=== PATIENT | female | born 1965 | race Two or more races ===

== ENCOUNTER 2016-10-16 18:11 | Emergency (ER) | payer MEDICAID ==
[~2016-10-16] VITALS: Ht 165.1 cm; Wt 101.6 kg
[2016-10-16 18:26] VITALS: BP 138/64
[2016-10-16] MEDS ORDERED: IBUPROFEN 600 MG TAB PO ONE (22:00)
== END 2016-10-16 22:16 | disposition home or self-care (01) ==
LOC: ER 18:16
DX: S63.601A Unspecified sprain of right thumb, initial encounter (principal); M25.531 Pain in right wrist; E11.9 Type 2 diabetes mellitus without complications; E78.5 Hyperlipidemia, unspecified; I10 Essential (primary) hypertension; X58.XXXA Exposure to other specified factors, initial encounter; Y93.89 Activity, other specified; Y99.8 Other external cause status; Y92.89 Other specified places as the place of occurrence of the external cause
CPT/HCPCS: 73130; 82962

== ENCOUNTER 2017-02-09 19:35 | Emergency (ER) | payer MEDICAID, OTHER ==
[~2017-02-09] VITALS: Ht 154.9 cm; Wt 67.1 kg
[~2017-02-09 19:35] MED LIST: BENA20TA14 PO; FURO40TA4 PO; GABA-494 PO; HYDR5CRE3 PR; INS7030I SC; MET25T PO; METF-370 PO; POTA20TA53 PO; SIMV-8 PO; WARF1TAB PO
[2017-02-09 20:35] LABS: Basophils # (auto) 0 uL; Basophils % (auto) 0.3 % (0.0-2.0); Eosinophils # (auto) 0 uL; Eosinophils % (auto) 0.4 % (0.0-7.0); Hematocrit 41.1 % (36.0-46.0); Hemoglobin 13.4 g/dL (12.2-16.2); Lymphocytes # (auto) 4.7 uL; Lymphocytes % (auto) 51.2 % (10.0-50.0); Mean Corpuscular Hemoglobin 27.3 pg (28.0-32.0); Mean Corpuscular Hgb Conc. 32.5 g/dL (32.0-36.0); Mean Corpuscular Volume 83.8 fL (80.0-100.0); Mean Platelet Volume 9.2 fL (7.4-10.4); Monocytes # (auto) 0.5 uL; Monocytes % (auto) 5.4 % (0.0-12.0); Neutrophils # (auto) 3.9 uL; Neutrophils % (auto) 42.7 % (37.0-80.0); Platelet Count (auto) 286 10^3/uL (140-450); White Blood Cell 9.1 10^3/uL (4.4-10.8)
[2017-02-09 20:50] LABS: INR 2.11 (0.9-1.15); Partial Thromboplastin Time 31.8 sec (22.64-33.71); Prothrombin Time 23.2 sec (9.37-12.3)
[2017-02-09 20:52] LABS: Albumin 3.9 g/dL (3.4-5.0); BUN/Creatinine Ratio 16.7; Calcium 9.3 mg/dL (8.5-10.1); Potassium 3.8 mmol/L (3.5-5.1)
[2017-02-09 20:54] LABS: Bilirubin, Total 0.3 mg/dL (0.2-1.0); Total Protein 8.6 g/dL (6.4-8.2)
[2017-02-09 21:03] VITALS: BP 106/59
== END 2017-02-09 21:30 | disposition home or self-care (01) ==
LOC: ER 19:40
DX: T82.9XXD Unspecified complication of cardiac and vascular prosthetic device, implant and graft, subsequent encounter (principal); Z76.0 Encounter for issue of repeat prescription; E11.9 Type 2 diabetes mellitus without complications; E78.5 Hyperlipidemia, unspecified; K21.9 Gastro-esophageal reflux disease without esophagitis; I10 Essential (primary) hypertension; Z88.6 Allergy status to analgesic agent; Z79.4 Long term (current) use of insulin
CPT/HCPCS: 36415; 80053; 85025; 85610; 85730; 93005

== ENCOUNTER 2017-04-11 02:48 | Emergency (ER) | payer MEDICAID ==
[~2017-04-11] VITALS: Ht 167.6 cm; Wt 90.7 kg
[~2017-04-11 02:48] MED LIST changes: +ATROPINE SULF 0.5 MG/5ML SYR IV ONE; +CALCIUM CHLOR(10%) 100MG/ML 10ML SYRINGE IV ONE; +EPINEPHrine HCL 1 MG/10 ML SYRG IV ONE; +SODIUM BICARBONATE 8.4% INJ 50ML SYRINGE IV ONE
[2017-04-11] MEDS ORDERED: NOREPINEPHRINE BITARTRATE 250 ML IV ONE (03:01)
[2017-04-11] MEDS ORDERED: SODIUM BICARBONATE 8.4% INJ 50ML SYRINGE ONE (03:49)
[2017-04-11] MEDS ORDERED: ATROPINE SULF 0.5 MG/5ML SYR IV ONE (04:30)
[2017-04-11] MEDS ORDERED: SODIUM BICARBONATE 8.4 % INJ 50ML VIAL IV ONE (04:30)
== END 2017-04-11 04:59 | disposition expired ==
LOC: EDBD 02:48 → ER 02:49
DX: I46.9 Cardiac arrest, cause unspecified (principal); G93.41 Metabolic encephalopathy; I24.9 Acute ischemic heart disease, unspecified; I95.9 Hypotension, unspecified; Z95.1 Presence of aortocoronary bypass graft; Z95.2 Presence of prosthetic heart valve; K21.9 Gastro-esophageal reflux disease without esophagitis; I25.10 Atherosclerotic heart disease of native coronary artery without angina pectoris; I10 Essential (primary) hypertension; E11.9 Type 2 diabetes mellitus without complications
CPT/HCPCS: 31500; 82962; 93005; 99291; J0171; J0461